=== PATIENT | male | born 1955 | race Caucasian/White ===

== ENCOUNTER 2024-10-17 12:04 | Emergency (ER) | payer OTHER, SELFPAY ==
[2024-10-17 12:18] VITALS: BP 164/95
[2024-10-17 12:54] LABS: % Basophils 0.2 % (0-2); % Eosinophils 1.3 % (0-6); % Immature Granulocytes 0.4 % (0-0.5); % Monocytes 9.3 % (1.7-9.3); % Neutrophils 71.8 % (42.2-75.2); Absolute Eosinophils 0.1 10^3/uL (0-0.7); Absolute Lymphocytes 1.6 10^3/uL (1.2-3.4); Absolute Monocytes 0.9 10^3/uL (0.1-0.6); Absolute Neutrophils 6.7 10^3/uL (1.4-6.5); Hematocrit 43.1 % (39.0-52.0); Hemoglobin 15.2 g/dL (13.0-18.0); Mean Corp Hgb Conc. 35.3 g/dL (33.0-37.0); Mean Corpuscular Volume 85.2 fL (80.0-94.0); Mean Platelet Volume 10.2 fL (7.4-10.4); Nucleated Red Blood Cells % 0 % (-); Platelet Count 261 10^3/uL (130-400); Red Blood Cell Count 5.06 10^6/uL (4.70-6.10); Red Cell Dist. Width 13.2 % (11.5-14.5); White Blood Cell Count 9.3 10^3/uL (4.8-10.8)
[2024-10-17 13:02] LABS: Urine Albumin 2+ (Neg - Trace); Urine Bilirubin Negative (Negative); Urine Character Clear (Clear); Urine Color Yellow; Urine Glucose Negative (Negative); Urine Ketone 1+ (Negative); Urine Leukocyte Negative (Negative); Urine Nitrite Negative (Negative); Urine Occult Blood 1+ (Negative); Urine Specific Gravity 1.025 (<1.030); Urine Urobilinogen Negative (Neg - 1+)
[2024-10-17 13:07] LABS: ALT (SGPT) 18 U/L (0-50); AST (SGOT) 18 U/L (17-59); Albumin 4.3 g/dl (3.5-5.0); Alkaline Phosphatase 57 U/L (38-126); Blood Urea Nitrogen 23 mg/dl (9-20); Calcium 10.1 mg/dl (8.4-10.2); Carbon Dioxide 22 mmol/L (22-30); Chloride 104 mmol/L (98-107); Glucose 139 mg/dl (70-99); Lipase 161 U/L (23-300); Potassium 4.5 mmol/L (3.5-5.1); Sodium 138 mmol/L (135-145); Total Bilirubin 0.8 mg/dl (0.2-1.3); eGFR 43.37
[2024-10-17 13:44] LABS: Urine Mucus Many
[2024-10-17 13:45] LABS: Urine Amorphous Seen
[2024-10-17] MEDS: PERCOCET 5/325 1 TABLET PO (14:15)
[2024-10-17] MEDS: NSS 1000 IV (14:22)
[2024-10-17 14:24] VITALS: BP 141/107
--- NOTE | 2024-10-17 14:35 | ED.GENMED ---
History of Present Illness
General
Chief Complaint: Abdominal Pain
Source: patient
Exam Limitations: none
Time Seen by Provider: 10/17/24 13:16
Nursing documentation reviewed up to this point in time: agreed with
History of Present Illness
History of Present Illness:
69 y/o M with h/o kidney stone, htn, hld
here with R groin/lower abd pain x 3 days intermittent, trouble sleeping, radiates to groin and thigh
has had kidney stone previously
no hematuria, dysuria, vomiting, diarrhea
+nausea
no fever
denies mass/bulge in that area
Past History
Past History
ED Past Medical History: HTN, Hypercholesterolemia and Other (kidney stone)
ED Past Surgical History: None
Social History
Tobacco: Non-smoker
Alcohol: Daily
Personal:
Living: with family
Family History
Family History: Other (Noncontributory)
Review of Systems
Review of Systems
Allergies reviewed?: Yes
All Other Systems: Not applicable
Phy Exam
Physical Exam
Physical Exam:
GENERAL: Alert, comfortable
Neck: supple
CARDIAC: Regular rate and rhythm .
LUNGS: Clear breath sounds bilaterally, no acute respiratory distress, no wheezes/rales/rhonchi
ABDOMEN: Soft, normal bowel sounds, nondistended, nontender, no guarding, no rebound, neg urbina's
: normal inspection of region
nontender testicles b/l
no rashes
no hernia
NEUROLOGICAL: Alert and oriented, no focal neuro deficits
SKIN: Warm and dry, skin intact.
PSYCH: Normal and appropriate interaction.
Course
Orders/Labs/Results
Orders:
Orders
10/17/24 12:40
Complete Blood Count/With Diff Urgent
Comprehensive Metabolic Panel Urgent
Lipase Urgent
10/17/24 12:42
Urinalysis Reflex To Culture Urgent
Date Specimen was Collected: 10/17/24
Time Specimen was Collected: 12:23
Urine Microscopic Reflex Cult Urgent
10/17/24 14:12
CT Abd/pel Without Iv Or Oral Urgent
Comment:
Reason For Exam: R inguinal pain/flank pain x 3 days, elev cr
0.9% Sodium Chloride 1000 ml [Nss] 1,000 ml IV BOLUS
Oxycodone/Acetaminophen [Percocet 5/325] 1 tablet PO NOW STA
10/17/24 16:48
Tamsulosin [Flomax] 0.4 mg PO NOW STA
Abnormal Lab Results
10/17/24 10/17/24
12:40 12:42
Absolute Neuts (auto) 6.7 H 10^3/uL
(1.4-6.5)
Absolute Monos (auto) 0.9 H 10^3/uL
(0.1-0.6)
Lymphocytes % 17.0 L %
(20.5-51.1)
BUN 23 H mg/dl
(9-20)
Creatinine 1.7 H mg/dL
(0.7-1.3)
Glucose 139 H mg/dl
(70-99)
Urine Ketones 1+ A
(Negative)
Ur Occult Blood Reflex 1+ A
(Negative)
Urine RBC 3-6 A /HPF
(0-2)
Urine Albumin (Reflex) 2+ A
(Neg - Trace)
10/17/24 12:40
10/17/24 12:40
Vital Signs
Initial and Last Documented VS:
Initial Vital Signs
Temp Pulse Resp BP Pulse Ox
36.7 C 86 18 164/95 97
10/17/24 12:18 10/17/24 12:18 10/17/24 12:18 10/17/24 12:18 10/17/24 12:18
Last Documented Vital Signs
Temp Pulse Resp BP Pulse Ox
36.7 C 67 18 136/83 95
10/17/24 12:18 10/17/24 16:33 10/17/24 14:38 10/17/24 16:00 10/17/24 16:00
MDM/Problems Addressed
Differential Diagnosis Includes:
kidney stone, hernia
MDM/Problems Addressed:
harika vasqueza 69 y/o M
htn, hld
1 previous kidney stone
here with R lower abd/flank pain x 3 days, no fever ,no dysuria
no abd tenderness
afebrile, wbc 9, cr 1.7 (no old to compare) and UA with blood and ketones;
ct with 5 mm distal R uvj stone with mild hydro
given IVF;
d/w urologist licensed mental health professional dr. ng
ok to d/c home
trial of passage
flomax
pain contorl
avoid nsaids
strainer
urology f/u
ED Attending Note
-
Portions of this chart may have been created with voice recognition software.� Occasional wrong word or��sound alike� substitutions may have occurred due to the inherent limitations of voice recognition software.
Discharge Plan
Departure
Patient Disposition: Home (Routine Discharge)
Date of Disposition: 10/17/24
Time of Disposition: 16:52
Discharge Problem:
Kidney stone
Instructions: Kidney Stones (DC)
Prescriptions:
New
oxycodone 5 mg tablet
5 mg PO Q8H PRN (Reason: Pain) Qty: 10 0RF
acetaminophen 500 mg tablet
1,000 mg PO TID PRN (Reason: PAIN) Qty: 30 0RF
tamsulosin [Flomax] 0.4 mg capsule
0.4 mg PO DAILY Qty: 30 0RF
No Action
diclofenac sodium 75 MG tablet,delayed release (/EC)
75 mg PO BID PRN (Reason: pain, take with food) Qty: 20 0RF
Referrals:
Benigno Ng MD [Active] - Follow up in 2-3 days
Roverto Dailey MD [Family Provider] -
Activity Restrictions/Additional Instructions:
YOU HAVE A 5 MM KIDNEY STONE IN THE RIGHT URETER WITH MILD SWELLING OF THE KIDNEY
DRINK FLUIDS TO HELP IT PASS
FLOMAX ONCE A DAY UNTIL YOU PASS THE STONE
URINATE IN A STRAINER SO YOU KNOW WHEN YOU PASS IT
TAKE TYLENOL 3 TIMES A DAY
IF PAIN IS WORSE, TAKE OXYCODONE 5 MG EVERY 8 HOURS NEEDED
RETURN FOR: FEVER, BURNIGN WITH URINATION, VOMITING, SEVERE PAIN OR ANY CONCERNS.
CALL UROLOGY FOR FOLLOW UP
Interventions
Interventions:
*Risk Screen - Suicide Last Done: 10/17/24 16:33
*General Assessment Last Done: 10/17/24 12:18
*Neglect/Abuse Screening Last Done: 10/17/24 16:33
*ED- Fall Risk Assessment Last Done: 10/17/24 16:31
*ED COVID-19 Vaccine History Last Done: 10/17/24 13:16
NP-Wqglxb-Oowogeyqrg Assessment Last Done: 10/17/24 14:37
Discharge Date and Time
Print Language: SERBIAN
[2024-10-17 15:00] VITALS: BP 131/83
[2024-10-17 16:00] VITALS: BP 136/83
[2024-10-17 16:32] VITALS: BP 143/83
[2024-10-17] MEDS: FLOMAX 0.4 MG PO (16:56)
[2024-10-17 17:00] VITALS: BP 165/91
== END 2024-10-17 17:11 | disposition home or self-care (01) ==
LOC: EMR 12:04
PROVIDERS: Emergency Medicine; EMERGENCY PHYSICIAN Emergency Medicine; FAMILY PHYSICIAN Family Medicine
DX: N13.2 Hydronephrosis with renal and ureteral calculous obstruction (principal); I10 Essential (primary) hypertension; E78.00 Pure hypercholesterolemia, unspecified; Z87.442 Personal history of urinary calculi
CPT/HCPCS: 99284; 96360; 74176; 80053; 81003; 81015; 83690; 85025